=== PATIENT | female | born 1990 | race Caucasian/White ===

== ENCOUNTER 2018-06-04 19:57 | Emergency (ER) | payer SELFPAY ==
[~2018-06-04] VITALS: Ht 160 cm; Wt 62.1 kg
[2018-06-04] MEDS ORDERED: NKM (20:03)
--- NOTE | 2018-06-04 20:05 | NUR ---
ER Nurse Note: Pt came from home c/o spotting from vagina since "a few weeks" during . Last prenancy was 05/14/18. Pt stated the blood is red, less frequant than before and denies pain. Pt stated she was advised to check HCG levels d/t her HCG is decreasing. ERMD at pt side; will continue to montior.
--- NOTE | 2018-06-04 20:30 | Emergency Room Report ---
History of Present Illness General Chief Complaint: Complications Source: Patient Present Illness HPI Patient had an abnormal menstruation in April on the . [place] [address] [facility] [place] hCG of 426. She was seen days ago and had a quantitative was 186. The bleeding is decreasing and she has no pain. There is no fever. She is here for repeat quantitative analysis. One of her friends said that the friend's quant was decreasing and now she is in her third trimester. She is concerned that the quantitative hCG might be rising. 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 She's never been before. She denies dysuria. No fevers chills. [place] [facility] [place] is blood type O-. She received RhoGam there. Allergies: Coded Allergies: No Known Allergies (Unverified , 06/04/18) Patient History Past Medical History: see triage record Social History: Denies: smoking, drug use - Prior IV heroin Social History Narrative With friends Last Menstrual Period: 05/14/18 Now: Yes : 1 Para: 0 Reviewed Nursing Documentation: PMH: Agreed; PSxH: Agreed Nursing Documentation-PM Past Medical History: No Stated History Review of Systems All Other Systems: negative except mentioned in HPI Physical Exam Vital Signs Date Time Temp Pulse Resp B/P (MAP) Pulse Ox O2 Delivery O2 Flow Rate FiO2 06/04/18 19:59 98.1 89 18 117/80 100 Room Air Sp02 EP Interpretation: reviewed, normal General Appearance: well appearing, no apparent distress Head: normocephalic, atraumatic Eyes: bilateral eye normal inspection, bilateral eye PERRL ENT: hearing grossly normal, normal voice Neck: full range of motion, supple Respiratory: no respiratory distress, speaking full sentences Cardiovascular #1: regular rate, rhythm Cardiovascular #2: 2+ radial (R) Gastrointestinal: normal bowel sounds, non tender Genitourinary: no CVA tenderness, deferred Musculoskeletal: no calf tenderness Neurologic: alert, oriented x3, normal gait, grossly normal Psychiatric: mood/affect normal Skin: warm/dry, other - Old track rosenbaum Medical Decision Making Diagnostic Impression: Primary Impression: Miscarriage Additional Impression: Type O blood, Rh negative ER Course Patient with decreasing quantitative hCG test here for repeat hCG determination. Differential includes early , miscarriage, threatened miscarriage, ectopic amongst others. The fact she is pain-free is against this being ectopic. Quantitative hCG level will be determined. Quantitative hCG is 158. Discussed likelihood that she may have had a blighted ovum and that she may have miscarried without her knowledge. HCG values are against early . The fact she has no pain ectopic is extremely unlikely. Discussed with patient the extreme low likelihood of needing a D&C. However she needs to be evaluated by an BIOANALYST. Patient understands this. Patient stable for outpatient observation and treatment. Last Vital Signs Date Time Temp Pulse Resp B/P (MAP) Pulse Ox O2 Delivery O2 Flow Rate FiO2 06/04/18 19:59 98.1 89 18 117/80 100 Room Air Last Vital Signs Date Time Temp Pulse Resp B/P (MAP) Pulse Ox O2 Delivery O2 Flow Rate FiO2 06/04/18 21:34 98.1 82 17 122/76 100 Room Air Status: improved Disposition: HOME, SELF-CARE Condition: Stable Referrals: NOT CHOSEN IPA/,REFERRING (PCP) Ace Parra MD Jun 04, 2018 20:30
--- NOTE | 2018-06-04 21:32 | NUR ---
ER Nurse Note: Pt seen, treated, medically cleared for discharge by ERMD. Discharge instructions given with repeat verbalization by pt. Instructed pt to follow up with primary care provider/OBGYN for follow up appointment. Pt a&ox4, VSS, no signs of distress. Pt tolerated the results of test well; all questions answered. ID band removed. Pt ambulatory, left with all belongings via own transportation with friend.
[2018-06-04 21:34] VITALS: BP 122/76
== END 2018-06-04 21:30 | disposition home or self-care (01) ==
LOC: EMR 20:20
DX: O03.9 Complete or unspecified spontaneous abortion without complication (principal)
CPT/HCPCS: 36415; 84702; 99284